=== PATIENT | female | born 1955 | race Caucasian/White ===

== ENCOUNTER 2019-03-22 11:10 | Outpatient (CLI) | payer BC ==
[2019-03-22 13:26] LABS: #Basophils 0.1 thou/uL (0.0-0.2); #Eosinphils 0.2 thou/uL (0.0-0.7); #Lymphocytes 2.1 thou/uL (1.20-3.40); #Monocytes 0.6 thou/uL (0.11-0.59); %Basophils 0.7 % (0.0-1.0); %Eosinophils 2.5 % (0.0-10.0); %Lymphocytes 26.5 % (21.0-51.0); %Neutrophils 63.4 % (42.0-75.0); Hemoglobin 12.7 g/dL (12.0-16.0); Mean Corpuscular HGB CONC 33.2 g/dL (32.0-36.0); Mean Corpuscular Hemoglobin 30.3 pg (27.0-31.0); Mean Corpuscular Volume 91.2 fL (78.0-98.0); Platelet Count 255 thou/uL (130-400); RBC Distribution Width 12.7 % (11.5-14.5); Red Blood Cell (RBC) Count 4.18 mill/uL (4.20-5.40); White Blood Cell (WBC) Count 7.9 thou/uL (4.8-10.8)
== END 2019-03-22 11:11 | disposition home or self-care (01) ==
LOC: LABBT 11:10
PROVIDERS: ATTEND Orthopaedic Surgery Hand Surgery
DX: Z01.818 Encounter for other preprocedural examination (principal); G56.01 Carpal tunnel syndrome, right upper limb
CPT/HCPCS: 85025; 93005; 93010

== ENCOUNTER 2019-03-25 08:04 | Day surgery (SDC) | payer BC ==
[2019-03-22 11:33] VITALS: BMI 25.3
[2019-03-25] MEDS ORDERED: Betamet Acet/Betamet Na Ph 30 MG/5 ML VIAL ONE (10:37)
[2019-03-25] MEDS ORDERED: Bacitracin Zinc Ointment 30 gm TUBE ONE (10:37)
[2019-03-25] MEDS ORDERED: Bupivacaine PF 0.5% 30 ML VIAL ONE (10:37)
[2019-03-25] MEDS ORDERED: Fentanyl 100 MCG/2 ML VIAL ONE (10:38)
[2019-03-25] MEDS ORDERED: Midazolam HCl 2 mg/2 ml Vial ONE (10:38)
[2019-03-25] MEDS ORDERED: Ketorolac Tromethamine 30 MG/ML VIAL ONE (12:05)
[2019-03-25] MEDS ORDERED: Lidocaine 1% PF 5 ML VIAL ONE (13:41)
[2019-03-25] MEDS ORDERED: PROPOFOL 200 MG/20 ML VIAL ONE (13:41)
[2019-03-25] MEDS ORDERED: Ondansetron PF 4 MG/2 ML Vial ONE (13:41)
--- NOTE | 2019-03-29 12:21 | OP ---
DATE OF PROCEDURE: 03/25/2019 PREOPERATIVE DIAGNOSIS: Right carpal tunnel syndrome. POSTOPERATIVE DIAGNOSES: 1. Right carpal tunnel syndrome. 2. Findings tight transverse carpal ligament. No stippling and mild hourglass formation seen over 5 mm area. PROCEDURE PERFORMED: Right carpal tunnel release. TOURNIQUET TIME: 14 minutes. INJECTABLE: 1. Yes, 10 mL of 0.5% Marcaine given prior to the incision, 5 given afterwards. 2. Drip technique, Celestone into the wound over the nerve. ANESTHESIA: General technique by [facility]. INDICATIONS: Failed conservative treatment to include injections, bracing, as well as modification activity and did not have resolution possibly on exam. DESCRIPTION OF PROCEDURE: After successful general anesthesia was accomplished. We did time-out. Limb was exsanguinated after prepping and draping, tourniquet inflated to 250 mmHg pressure. We outlined incision in-line with the ring finger, beginning at Gibbs's cardinal line and distally and proximally 4 to 5 mm distal to the volar wrist flexion crease. After inflation of the tourniquet, we carried this incision through skin and subcutaneous tissue until we identified the palmaris longus over the transverse carpal ligament. We made incision with [place] blade over the palmaris longus ulnar edge, carried this through the terminal tendon and into the transcarpal ligament. We then opened it with a [place] blade and direct visualization from the midportion distally and then from the midportion proximally using a combination of [place] blade tenotomy scissors. The nerve was completely free. There was no tenosynovitis and we saw hourglass formation in the middle third of the median nerve within the canal 5 mm total length. No stippling. Placed Celestone 3 mL over the nerve, inflated the tourniquet, obtained hemostasis, closed the wound with interrupted 4-0 nylon mattress pattern. Bulky dressing was applied. The patient left the operating room without evidence of anesthetic or operative complications. Job ID: [id number]
== END 2019-03-25 13:30 | disposition home or self-care (01) ==
LOC: SDC 08:04
PROVIDERS: ATTEND Orthopaedic Surgery Hand Surgery
PROC: 01N50ZZ Release Median Nerve, Open Approach (ICD-10-PCS; principal; 2019-03-25)
DX: G56.01 Carpal tunnel syndrome, right upper limb (principal)
CPT/HCPCS: J0690; J0702; J1885; J2001; J2250; J2405; J2704; J3010; J3490; S0020